=== PATIENT | male | born 2000 | race Caucasian/White ===

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

== ENCOUNTER 2019-09-29 18:06 | Emergency (ER) | payer OTHER ==
[~2019-09-29] VITALS: Ht 170.2 cm; Wt 72.6 kg
[2019-09-29 18:09] VITALS: BP 93/59; Ht 170.2 cm; Wt 72.6 kg
== END 2019-09-29 20:35 | disposition home or self-care (01) ==
LOC: ED 18:06
DX: N50.3 Cyst of epididymis (principal)
CPT/HCPCS: 87491; 87591